=== PATIENT | male | born 1990 | race African-American/Black ===

== ENCOUNTER 2023-02-07 10:22 | Emergency (ER) | payer OTHER ==
[~2023-02-07] VITALS: Ht 180.3 cm; Wt 70.3 kg
[2023-02-07] MEDS ORDERED: GUAIFEN-CODEINE5 ML PO (11:33)
== END 2023-02-07 11:30 | disposition home or self-care (01) ==
LOC: FSED 10:41
DX: J10.1 Influenza due to other identified influenza virus with other respiratory manifestations (principal); F17.200 Nicotine dependence, unspecified, uncomplicated; Z71.6 Tobacco abuse counseling
CPT/HCPCS: 83518; 87400; 99282

== ENCOUNTER 2023-04-13 13:44 | Emergency (ER) | payer OTHER ==
[~2023-04-13] VITALS: Ht 180.3 cm; Wt 72.1 kg
[~2023-04-13 13:44] MED LIST: GUAIFEN-CODEINE5 ML PO
[2023-04-13 14:07] VITALS: O2SAT 99
[2023-04-13] MEDS ORDERED: FLUORESCEIN SOD(OPTH) 1 MG STRP ONE (15:15)
[2023-04-13] MEDS ORDERED: TOBRAMYCIN SULFA5 ML OD (15:27)
== END 2023-04-13 15:48 | disposition home or self-care (01) ==
LOC: FSED 14:13
DX: H10.9 Unspecified conjunctivitis (principal)
CPT/HCPCS: 99283